=== PATIENT | female | born 1980 | race Caucasian/White ===

== ENCOUNTER 2025-05-08 18:50 | Emergency (ER) | payer MEDICAID ==
[~2025-05-08] VITALS: Ht 154.9 cm; Wt 61.4 kg
[~2025-05-08 18:50] MED LIST: NO HOME MEDS
[2025-05-08] MEDS: mag hydrox/Alum hydrox/simeth 30ml oral suspension PO ONE (20:07)
[2025-05-08] MEDS: LIDOcaine 2% Viscous 15ml cup MM ONE (20:07)
--- NOTE | 2025-05-08 20:08 | Physician Documentation ---
History of Present Illness ~ Chief Complaint: Sore Throat Stated Complaint: THROAT PAIN Time Seen by MD: 19:55 Source: patient Mode of Arrival: POV Exam Limitations: no limitations HPI Was complaining of sore throat after swallowing mashed potatoes two days ago. Pain worse with coughing and burping. She is eating and drinking normally. No difficulty swallowing. Described as burning. Medication Reconciliation Allergies: Coded Allergies: No Known Allergies (Unverified , 05/08/25) Miscellaneous Medications Home Med List (No Home Medications), (Reported) Past Medical History Past Medical History: No Pertinent History Review of Systems ROS Review of systems negative except documented in HPI. Physical Exam Vital Signs: RN Vital Signs have been reviewed: Yes, Temperature: 97.8, Source: Temporal, Heart Rate: 87, Respiratory Rate: 18, BP: 107/67, Pulse Oximetry: 97, Weight: 61.360 Oxygen Flow Rate: 0 Pulse Oximetry Reflects: adequate oxygenation Physical Exam General: Awake, alert, oriented. No apparent distress Oropharynx was normal. No erythema. No tonsillar exudate. Respiratory: Lungs are clear to auscultation bilaterally. No respiratory distress. Chest: Normal shape and size. No accessory muscle use. Cardiovascular: Regular rate and rhythm. S1-S2. No murmur, gallop, rub. Gastrointestinal: Abdomen is soft. Nontender to palpation. Bowel sounds present. Neurologic: Alert and oriented x4. Nonfocal Psychiatric: Normal mood and affect. Skin: Normal color. Warm and dry. Progress Progress Note Patient states that she feels better after with viscous lidocaine and Maalox. Results/Orders Results/Orders Completed Orders - HODAN PRAJAPATI NP Mag & Alum Hydrox/Simeth Susp (Maalox Or (05/08/25 20:00) Lidocaine 2% Viscous (Xylocaine 2% Visco (05/08/25 20:00) Medications Received in ER Medications (Trade) Dose Ordered Sig/Mario Route PRN Reason Start Time Stop Time Status Last Admin Dose Admin (Maalox oral suspension) 30 ml ONCE ONCE PO 05/08/25 20:00 05/08/25 20:01 DC 05/08/25 20:07 30 ML (Xylocaine 2% Viscous 15mL cup) 15 ml ONCE ONCE MM 05/08/25 20:00 05/08/25 20:01 DC 05/08/25 20:07 15 ML Vital Signs 05/08/25 05/08/25 18:54 20:38 Temp 97.8 98.6 Pulse 87 86 Resp 18 18 B/P (MAP) 107/67 110/68 Pulse Ox 97 99 O2 Flow Rate 0 Medical Decision Making Additional information obtaine: old records Findings Patient presented secondary to sore throat after swallowing hot potato is just out of the water two days ago. Pain with coughing as well as burping. Otherwise states she has felt well.. She is able swallow. She is keeping food and water down. No drooling. No erythema to the oropharynx on exam. Vital signs are stable. She was given Maalox and viscous lidocaine with improvement in symptoms. Disease course was reviewed. Encouraged to rest. Supportive care instructions reviewed. This time there was no evidence of acute oropharynx emergency or evidence of esophageal rupture. Please symptoms secondary to irritation. She verbalized understanding. Encouraged to follow up with primary care provider. Ear Diff. Dx: Considerations: Unlikely: Other (Not applicable) Eye Diff. Dx: Considerations: Unlikely: Other (Not applicable) Nose Diff. Dx: Considerations: Unlikely: Other (Not applicable) Tooth Diff. Dx: Considerations: Unlikely: Other (Not applicable) Throat Diff Dx: Considerations: Include: Esophageal candidiasis, Herpes simplex, Infection mononucleosis, Pharyngitis-diphtheria, Pharyngitis- strepococcal, Pharyngitis-viral, Thrush, Other Departure Time of Disposition: 20:22 Disposition: 01 HOME / SELF CARE / HOMELESS Impression: Primary Impression: Sore throat Condition: Stable Discharge Instructions: Sore Throat Additional Instructions: Suspect local irritation after swelling those potatoes. Recommend that you follow up with your primary care provider. This will take time to heal. Return for any new or worsening symptoms, difficulty breathing, unable to swallow or manage secretions. Or any other concerns. Referrals: NO PRIMARY CARE PROVIDER (PCP) Education Educated: Patient Educated regarding: diagnosis, treatment, need for follow up Signature Scribe Signature: No scrib Attestation: The note accurately reflects work and decisions made by me.Hodan Fried NP 05/08/25 22:17 This note was created with the assistance of voice recognition software whereby errors in grammar, syntax, and/or spelling may have occurred despite active proofreading efforts by the author. Please do not hesitate to contact the provider for clarification or for questions regarding the content of this document. HODAN PRAJAPATI NP May 08, 2025 20:08
[2025-05-08 20:38] VITALS: BP 110/68; PULSE 86; RESP 18; TEMP 98.6; O2SAT 99
== END 2025-05-08 20:39 | disposition home or self-care (01) ==
LOC: ER 18:50
DX: J02.9 Acute pharyngitis, unspecified (principal); R05.9 Cough, unspecified
CPT/HCPCS: 99283